=== PATIENT | male | born 1930 | race Asian ===

== ENCOUNTER 2020-11-24 11:03 | Inpatient (IN) | payer OTHER, MEDICAID, SELFPAY ==
[~2020-11-24] VITALS: Ht 162.6 cm; Wt 84.8 kg
--- NOTE | 2020-11-24 11:06 | NUR ---
Patient transferred to bed 6 via wheelchair by tech. RN evaluating the patient at bedside.
--- NOTE | 2020-11-24 11:15 | NUR ---
Dr. Miguel is evaluating the patient at bedside.
--- NOTE | 2020-11-24 11:15 | NUR ---
89 y/o M brought in by and daughter with c/c chest pain x 2 days. Patient presents A&Ox4, Greek speaking with daughter at bedside for translation. Per daughter, patient had worsening SOB x 2 days and chest pain that began last night. Pt states 7/10, squeezing/intermittent chest pain that worsens upon exertion. Pt states relief when sitting upright. Patient denies dizziness, N/V, fever, headache, abdominal pain. Daughter states patient took Advil with little relief. Upon assessment, SpO2 94% on room air. Respirations even/unlabored. Lung sounds CTA. site monitor in place. EMT at bedside for EKG. Bed locked in lowest position, side rails x1, call light in reach. PMH: HTN, HLD, DM, RIGHT EYE BLINDNESS, LEFT EYE PARTIAL BLINDNESS, 2 CVA [id number] AND [id number] Meds: See med reconciliation NKA
[2020-11-24 11:16] VITALS: BP 153/87
[2020-11-24] MEDS ORDERED: FUROSEMIDE 40 MG/4 ML VIAL IVP ONE (11:25)
[2020-11-24] MEDS ORDERED: NITROGLYCERIN 0.4 MG TAB SL ONE (11:25)
[2020-11-24] MEDS ORDERED: ASPIRIN 325 MG TAB PO ONE (11:25)
--- NOTE | 2020-11-24 11:25 | NUR ---
Rosa swab & blood samples collected, handed to Sanjana at ER bedside.
--- NOTE | 2020-11-24 11:31 | NUR ---
SAMUELD REQUESTED TO DELAY SECOND EKG FOR 20 MINS.
[2020-11-24 11:39] LABS: BASOPHILS # (AUTO) 0.1 K/uL (0.00-0.22); EOSINOPHILS # (AUTO) 0.3 K/uL (0-0.4); HEMATOCRIT 33.2 % (36-52); HEMOGLOBIN 11.1 g/dL (12.0-18.0); LYMPHOCYTES # (AUTO) 1.5 K/uL (2.0-11.5); LYMPHOCYTES % (AUTO) 22.4 % (20.5-51.1); MEAN CORPUSCULAR HEMOGLOBIN 30 pg (27-31); MEAN CORPUSCULAR HGB CONC 34 g/dL (33-37); MEAN CORPUSCULAR VOLUME 88.8 fL (80-94); MONOCYTES # (AUTO) 0.6 K/uL (0.8-1.0); MONOCYTES % (AUTO) 9.6 % (1.7-9.3); NEUTROPHILS # (AUTO) 4.2 K/uL (1.8-7.7); PLATELET COUNT (AUTO) 270 K/uL (140-450); RED BLOOD CELL COUNT(AUTO) 3.74 MIL/uL (4.20-6.10); RED CELL DISTRIBUTION WIDTH 15.3 % (11.6-13.7); WHITE BLOOD COUNT (AUTO) 6.6 K/uL (4.8-10.8)
[2020-11-24] MEDS ORDERED: AMLO2.5T PO (11:42)
[2020-11-24] MEDS ORDERED: SITA100T8 PO (11:42)
[2020-11-24] MEDS ORDERED: BRIM5SOL2 OP (11:42)
[2020-11-24] MEDS ORDERED: HYDR-3298 PO (11:42)
[2020-11-24] MEDS ORDERED: DONE10TA10 PO (11:42)
[2020-11-24] MEDS ORDERED: PIOG15TA84 PO (11:42)
[2020-11-24] MEDS ORDERED: VITA1TAB44 PO (11:42)
[2020-11-24] MEDS ORDERED: METF500T PO (11:42)
[2020-11-24] MEDS ORDERED: OLAN2.5T1 PO (11:42)
[2020-11-24] MEDS ORDERED: CLOP75TA55 PO (11:42)
[2020-11-24] MEDS ORDERED: INSU300S SC (11:42)
[2020-11-24] MEDS ORDERED: TRAV5SOL OP (11:42)
[2020-11-24] MEDS ORDERED: ATOR10TA PO (11:42)
[2020-11-24] MEDS ORDERED: TAMS0.4C96 PO (11:49)
[2020-11-24] MEDS ORDERED: CHOL200072 PO (11:49)
[2020-11-24] MEDS ORDERED: ICOS1SGL PO (11:49)
[2020-11-24] MEDS ORDERED: METO50TE2 PO (11:49)
--- NOTE | 2020-11-24 11:50 | NUR ---
EMT at bedside for repeat EKG.
--- NOTE | 2020-11-24 11:52 | NUR ---
Note undone in EDM - 11/24/20 at 1156 by MEDHL 89 y/o M brought in by and daughter with c/c chest pain x 2 days. Patient presents A&Ox4, Lithuanian speaking with daughter at bedside for translation. Per daughter, patient had worsening SOB x 2 days and chest pain that began last night. Pt states 7/10, squeezing/intermittent chest pain that worsens upon exertion. Pt states relief when sitting upright. Patient denies dizziness, N/V, fever, headache, abdominal pain. Daughter states patient took Advil with little relief. Upon assessment, SpO2 94% on room air. Respirations even/unlabored. Lung sounds CTA. ekg monitor in place. EMT at bedside for EKG. Bed locked in lowest position, side rails x1, call light in reach. PMH: HTN, HLD, DM, RIGHT EYE BLINDNESS, LEFT EYE PARTIAL BLINDNESS, 2 CVA [id number] AND [id number] Meds: See med reconciliation NKA
[2020-11-24 11:54] LABS: ALBUMIN 3.3 g/dL (3.4-5.0); ANION GAP 14.5 (8-16); ASPARTATE AMINOTRANSFERASE 24 U/L (15-37); CARBON DIOXIDE 24.5 mmol/L (21-32); CHLORIDE 102 mmol/L (98-107); CREATININE 1.8 mg/dL (0.6-1.3); GLUCOSE 291 mg/dL (74-106); SODIUM SERUM 137 mmol/L (136-145); TOTAL BILIRUBIN 0.4 mg/dL (0.0-1.0); UREA NITROGEN, BLOOD 23 mg/dL (7-18)
--- NOTE | 2020-11-24 11:54 | NUR ---
technology manager at bedside.
--- NOTE | 2020-11-24 11:56 | NUR ---
Teresa (Daughter/sewing demonstrator): [phone]
[2020-11-24] MEDS ORDERED: cefTRIAXone 1,000 MG VIAL ONE (12:38)
[2020-11-24 12:42] LABS: PROTHROMBIN TIME 9.8 secs (10.8-13.4)
--- NOTE | 2020-11-24 12:45 | NUR ---
Novel swab collected, walked to lab and handed to Sanjana
--- NOTE | 2020-11-24 13:11 | NUR ---
Report given to CORETTA Reyes via telephone. Advised patient will be ready to go in 10 minutes.
[2020-11-24 13:40] VITALS: BP 153/84
--- NOTE | 2020-11-24 13:40 | NUR ---
Patient will be admitted to care of Dr. Eng. Admited to Telemetry. Will go to [id number]. Belongings list completed. Report to CORETTA Reyes.
--- NOTE | 2020-11-24 13:40 | NUR ---
RECEIVED PT FROM ER NURSE. PT HAS R WRIST 20G. SKIN INTACT. PT ON 2L OXYGEN, NO SIGNS OF DISTRESS NOTED. INTRODUCE PT TO THE ROOM. DEMONSTRATED USE OF PHONE AND CALL LIGHT. SAFETY MEASURES IN PLACE, WILL CONTINUE TO MONITOR.
[2020-11-24] MEDS ORDERED: ONDANSETRON 4 MG/2 ML VIAL IM/IVP PRN (13:55)
[2020-11-24] MEDS ORDERED: HYDROcodone/APAP 7.5/325 MG 1 TAB PO PRN (13:55)
[2020-11-24] MEDS ORDERED: ACETAMINOPHEN 325 MG TAB PO PRN (13:55)
[2020-11-24] MEDS ORDERED: DOCUSATE SODIUM 100 MG GELCAP PO PRN (13:55)
[2020-11-24] MEDS ORDERED: guaiFENesin DM 200/20 MG-10 ML 10 ML UDC PO PRN (13:55)
[2020-11-24] MEDS ORDERED: ZOLPIDEM 5 MG TAB PO PRN (13:55)
[2020-11-24] MEDS ORDERED: POTASSIUM CHLORIDE 40 MEQ, LIDOCAINE MPF 1% 25 MG in NACL 0.9% 250 ML IV PRN (13:55)
[2020-11-24] MEDS ORDERED: ALBUTEROL SULFATE/IPRATROPIU 3 ML SOL IH PRN (14:00)
[2020-11-24] MEDS ORDERED: DEXTROSE 50% 50 ML SYR IVP PRN (14:00)
[2020-11-24 14:07] LABS: APPEARANCE,URINE CLEAR (CLEAR); BILIRUBIN,URINE NEGATIVE (NEGATIVE); BLOOD, URINE TRACE-I (NEGATIVE); COLOR,URINE YELLOW (YELLOW); LEUKOCYTE ESTERASE ,URINE NEGATIVE (NEGATIVE); NITRITE, URINE NEGATIVE (NEGATIVE); PH,URINE 5.5 (5.0-9.0); UGLUCOSE 3+ (NEGATIVE)
[2020-11-24 14:21] LABS: BARBITURATE, URINE NEGATIVE ng/ml (NEG <=200); BENZODIAZEPINE, URINE NEGATIVE ng/mL (NEG <=200); CANNABINOID, URINE NEGATIVE ng/mL (NEG <=50); COCAINE, URINE NEGATIVE ng/mL (NEG <=300); OPIATE, URINE NEGATIVE ng/mL (NEG <=2000); PHENCYCLIDINE SCREEN,URINE NEGATIVE ng/mL (NEG <=25)
[2020-11-24 14:23] LABS: CHOL/HDL RATIO 3.4 (1-4.5); FREE T4 (FREE THYROXINE) 1.29 ng/dL (0.76-1.46); MAGNESIUM 1.2 mg/dL (1.8-2.4); PHOSPHORUS 3.1 mg/dL (2.5-4.9); THYROID STIMULATING HORMONE 3.64 uIU/mL (0.34-3.74)
--- NOTE | 2020-11-24 14:57 | NUR ---
REPORT TO DR GARDINER, VTE RISK TOTAL SCORE:4. RECEIVED TORB FOR HEPARIN 5000 UNITS BID SUBCUTANEOUS. WILL INPUT ORDER.
--- NOTE | 2020-11-24 15:10 | NUR ---
NOTIFIED DR GARDINER PT MAGNESIUM 1.2. RECEIVED TORB FOR 2MG MAG RIDER IV. AND CHECK MAGNESIUM TOMORROW. WILL INPUT ORDER.
[2020-11-24] MEDS ORDERED: MAG SULF 2000 MG/WATER PREMIX 50 ML IV SCH (15:30)
[2020-11-24 16:00] VITALS: BP 129/72
--- NOTE | 2020-11-24 16:00 | NUR ---
ADMINISTERED SCHEDULED MEDICATION, MEDICATION EDUCATION PROVIDED. PT TOLERATED WELL. PT IS STABLE, WILL CONTINUE TO MONITOR.
[2020-11-24] MEDS: INSULIN LISPRO SLIDING SCALE 100 UNITS/ML VIAL SUBQ PRN ×2 (16:49→20:30)
[2020-11-24] MEDS: BLOOD GLUCOSE MONITORING 1 DEV DEV FS SCH ×2 (16:51→20:30)
[2020-11-24] MEDS: metFORMIN 500 MG TAB PO SCH (16:52)
--- NOTE | 2020-11-24 16:55 | NUR ---
ADMINISTERED SCHEDULED MEDICATION, PT TOLERATED WELL. PT IS STABLE. PT ON ROOM AIR, WILL CONTINUE TO MONITOR.
[2020-11-24] MEDS: NACL 0.9% 1,000 ML IV SCH (18:27)
--- NOTE | 2020-11-24 18:30 | NUR ---
PT WAS SEEN FOR DYSPHAGIA. PT WAS ABLE TO SAFELY SWALLOW MS DIET WITH CHOPPED MEAT AND VEG. MILD DIFFICULTY WITH MASTICATION SKILLS FOR REGULAR DIET. RECOMMENDATION MS DIET WITH FINELY CHOPPED VEG AND MEAT WITH THIN LIQUID
--- NOTE | 2020-11-24 18:34 | NUR ---
ADMINISTERED SCHEDULED FLUIDS. PT EDUCATION PROVIDED. PT IS EATING DINNER. PT IS STABLE, WILL CONTINUE TO MONITOR.
--- NOTE | 2020-11-24 19:25 | NUR ---
ENDORSE PT TO NIGHT NURSE FOR CONTINUITY OF CARE
--- NOTE | 2020-11-24 19:26 | NUR ---
RECEIVED REPORT FROM DAY SHIFT NURSE. PT IN BED RESTING. PT AAOX2, KNOWN HISTORY OF DEMENTIA, OCCITAN SPEAKING. RESPIRATIONS EVEN AND UNLABORED TO ROOM AIR, PT NOT IN DISTRESS. ABDOMEN IS SOFT AND NON-TENDER, ACTIVE BOWEL SOUNDS NOTED. SKIN IS WARM AND DRY. PT WITH IV ACCESS ON RIGHT WRIST G20, PATENT AND INTACT, IVF INFUSING WELL. NO S/SX PAIN OR DISCOMFORT AT THIS TIME. NO REQUESTS MADE. SAFETY MEASURES IN PLACE. CALL LIGHT WITHIN REACH. WILL CONTINUE TO MONITOR.
[2020-11-24] MEDS: ALBUTEROL SULFATE/IPRATROPIU 3 ML SOL IH SCH (19:35)
[2020-11-24 20:00] VITALS: BP 158/64
[2020-11-24] MEDS: OLANZapine 2.5 MG TAB PO SCH (20:23)
--- NOTE | 2020-11-24 20:30 | NUR ---
PT IN BED. SCHEDULED MEDS GIVEN. PT NOT IN DISTRESS. TOLERATING ROOM AIR WELL. NO S/SX OF PAIN OR DISCOMFORT. CALL LIGHT WITHIN REACH. WILL CONTINUE TO MONITOR.
[2020-11-24] MEDS ORDERED: NON-FORMULARY ITEM (Brimonidine Tartrate/Timolol (Combigan 0.2%-0.5% Eye Drops) 5 ML) OP SCH (21:00)
--- NOTE | 2020-11-24 22:08 | NUR ---
ROUNDS MADE. PT IN BED WATCHING TV. NO S/SX OF PAIN OR DISCOMFORT NOTED. PT UNABLE TO PRODUCE SPUTUM SAMPLE FOR CULTURE. CALL LIGHT WITHIN REACH. WILL CONTINUE TO MONITOR.
[2020-11-25] VITALS: BP 150/76
--- NOTE | 2020-11-25 00:20 | NUR ---
VS STABLE. PT NOT IN DISTRESS. PERINEAL CARE DONE WITH SUPERVISOR INSTRUMENT REPAIR. PT TOLERATED CARE PROVIDED. NO S/SX OF PAIN OR DISCOMFORT NOTED. PT KEPT COMFORTABLE. CALL LIGHT WITHIN REACH. WILL CONTINUE TO MONITOR.
--- NOTE | 2020-11-25 02:03 | NUR ---
ROUNDS MADE, PT ASLEEP. VISIBLE CHEST RISE AND FALL NOTED. NO S/SX OF PAIN OR DISCOMFORT AT THIS TIME. PT KEPT SAFE AND COMFORTABLE. WILL CONTINUE TO MONITOR.
[2020-11-25 04:00] VITALS: BP 161/76
--- NOTE | 2020-11-25 04:00 | NUR ---
PT PULLED OUT IV ACCIDENTALLY, CANNULA INTACT. NEW IV ACCESS INSERTED ON LEFT AC G20, PATENT AND INTACT. IVF INFUSING WELL. VS TAKEN, STABLE. PT DENIES ANY PAIN OR DISCOMFORT AT THIS TIME, NO REQUESTS MADE. CALL LIGHT WITHIN REACH. WILL CONTINUE TO MONITOR.
[2020-11-25 04:58] LABS: BASOPHILS # (AUTO) 0.1 K/uL (0.00-0.22); BASOPHILS % (AUTO) 0.8 % (0.0-2.0); EOSINOPHILS # (AUTO) 0.2 K/uL (0-0.4); EOSINOPHILS % (AUTO) 3.9 % (0.0-4.0); HEMATOCRIT 32.5 % (36-52); LYMPHOCYTES # (AUTO) 1.3 K/uL (2.0-11.5); LYMPHOCYTES % (AUTO) 20.1 % (20.5-51.1); MEAN CORPUSCULAR HEMOGLOBIN 30 pg (27-31); MEAN CORPUSCULAR HGB CONC 34 g/dL (33-37); MEAN CORPUSCULAR VOLUME 88.6 fL (80-94); MONOCYTES # (AUTO) 0.5 K/uL (0.8-1.0); MONOCYTES % (AUTO) 8.5 % (1.7-9.3); NEUTROPHILS # (AUTO) 4.2 K/uL (1.8-7.7); NEUTROPHILS % (AUTO) 66.7 % (42.2-75.2); PLATELET COUNT (AUTO) 255 K/uL (140-450); RED BLOOD CELL COUNT(AUTO) 3.66 MIL/uL (4.20-6.10); WHITE BLOOD COUNT (AUTO) 6.4 K/uL (4.8-10.8)
[2020-11-25 05:05] LABS: ANION GAP 11.4 (8-16); CHLORIDE 102 mmol/L (98-107); CREATININE 1.5 mg/dL (0.6-1.3); GLUCOSE 193 mg/dL (74-106); POTASSIUM 3.4 mmol/L (3.5-5.1); SODIUM SERUM 139 mmol/L (136-145); UREA NITROGEN, BLOOD 21 mg/dL (7-18)
[2020-11-25] MEDS: NACL 0.9% 1,000 ML IV SCH ×2 (06:31→20:56)
[2020-11-25] MEDS: PANTOPRAZOLE 40 MG TABEC PO SCH (06:32)
--- NOTE | 2020-11-25 06:35 | NUR ---
ROUNDS MADE, PT FOUND SITTING ON THE FLOOR ASKING FOR HELP. PT NOTED WITH A SMALL BLEEDING CUT FROM RIGHT EYE BROW. PT RESPONSIVE TO QUESTIONS AND PUPILS ARE REACTIVE. WITH THE HELP OF CENTRIFUGAL DRIER OPERATOR AND RN, PATIENT WAS ABLE TO STAND AND MOVE TO HIS BED. WOUND WAS CLEANSED AND DRESSED, ICE ALSO APPLIED TO AFFECTED AREA. PT WAS MOVED TO A CLOSER ROOM 110A. PT KEPT COMFORTABLE, SAFETY MEASURES IN PLACE, SIDE RAILS RAISED, CALL LIGHT WITHIN REACH. MD MADE AWARE AND RECEIVED ORDER FOR CT W/O CONTRAST.
[2020-11-25] MEDS: BLOOD GLUCOSE MONITORING 1 DEV DEV FS SCH ×4 (06:43→20:50)
[2020-11-25] MEDS: INSULIN LISPRO SLIDING SCALE 100 UNITS/ML VIAL SUBQ PRN ×4 (06:44→21:08)
[2020-11-25] MEDS: ALBUTEROL SULFATE/IPRATROPIU 3 ML SOL IH SCH ×3 (07:00→19:35)
--- NOTE | 2020-11-25 07:20 | NUR ---
ATTEMPTED TO SEE PATIENT FOR PHYSICAL THERAPY EVALUATION HOWEVER PATIENT HAD MORNING FALL PRIOR TO THERAPY VISIT. BP: 197/74 AND WAS GOING FOR A CT HEAD SCAN. WILL FOLLOW UP IF APPROPRIATE.
--- NOTE | 2020-11-25 07:32 | NUR ---
ENDORSED TO DAY SHIFT NURSE FOR CONTINUITY OF CARE
--- NOTE | 2020-11-25 07:35 | NUR ---
RECEIVED PATIENT FROM NIGHT NURSE. PATIENT IN BED AWAKE, ALERT, EYE OPENING SPONTANEOUS. RESPONDING TO NAME. RESP EVEN AND UNLABORED ON ROOM AIR. ICE PACK NOTED TO RIGHT EYE BROW WITH RIGHT SWELLING NOTED TO RIGHT EYE. PATIENT REPORTED TO HAVE BEEN FOUND ON THE FLOOR BY NIGHT NURSE. PATIENT UNABLE TO DISCUSS HOW IT HAPPENED. RAC 20G NOTED INFUSING WELL. PLAN OF CARE DISCUSSED, PATIENT NODDED UNDERSTANDING. HOB ELEVATED. CALL LIGHT WITHIN REACH. WILL CONTINUE TO MONITOR.
[2020-11-25] MEDS ORDERED: hydrALAZINE 20 MG/ML VIAL IVP PRN (07:45)
[2020-11-25 08:00] VITALS: BP 171/87
[2020-11-25 08:08] LABS: T4 (THYROXINE) 7.4 ug/dL (4.5-12.0)
--- NOTE | 2020-11-25 08:09 | NUR ---
PATIENT WENT FOR CT HEAD. PATIENT LEFT IN STABLE CONDITION.
--- NOTE | 2020-11-25 08:24 | NUR ---
PATIENT RETURNED FROM HEAD CT. SMALL CLOSED LACERATION NOTED TO RIGHT EYEBROW, NO ACTIVE BLEEDING NOTED AT THIS TIME. SWELLING NOTED TO RIGHT EYE. PATIENT AWAKE AND ALERT. EYE OPENING SPONTANEOUS. DENIED OF PAIN AT THIS TIME. WILL CONTINUE TO MONITOR.
--- NOTE | 2020-11-25 08:33 | NUR ---
FNS REFERRAL RECEIVED FOR "NOT APPLICABLE" WITH ONLY 1 OUT OF 2 TRIGGERS APPLIED. PATIENT HAS BEEN SCREENED AND CATEGORIZED MODERATE NUTRITION RISK. PATIENT WILL BE SEEN WITHIN 3-5 DAYS OF ADMISSION. 11/27/20 11/29/[address]
[2020-11-25] MEDS ORDERED: POTASSIUM CHLORIDE 10 MEQ TABER PO SCH (08:37)
--- NOTE | 2020-11-25 08:50 | NUR ---
RECEIVED CALL FROM DR FRASER RADIOLOGIST R/T PATIENT HEAD CT RESULT OF SUSPICIOUS RIGHT SUBDURAL HEMATOMA S/P FALL. DR FRASER RECOMMENDED REPEAT HEAD CT W/O CONTRAST IN [address] GARDINER MADE AWARE AND RECEIVED ORDER TO REPEAT CT. ORDER CARRIED OUT.
[2020-11-25] MEDS: ATORVASTATIN 20 MG TAB PO SCH (08:58)
[2020-11-25] MEDS: LOSARTAN 50 MG TAB PO SCH (08:58)
[2020-11-25] MEDS: metFORMIN 500 MG TAB PO SCH ×3 (08:58→16:35)
[2020-11-25] MEDS: TAMSULOSIN 0.4 MG CAP PO SCH (08:58)
[2020-11-25] MEDS: METOPROLOL SUCCINATE 50 MG TABER PO SCH (08:59)
[2020-11-25] MEDS: hydroCHLOROthiazide 25 MG TAB PO SCH (08:59)
[2020-11-25] MEDS: CLOPIDOGREL 75 MG TAB PO SCH (08:59)
[2020-11-25] MEDS: BRIMONIDINE TARTRATE 0.2% OP 5 ML BTL OP SCH ×2 (09:00→20:56)
[2020-11-25] MEDS: TIMOLOL OP 0.5% 5 ML BTL OP SCH ×2 (09:00→20:55)
[2020-11-25] MEDS: amLODIPine 5 MG TAB PO SCH (09:00)
[2020-11-25] MEDS ORDERED: NON-FORMULARY ITEM (Losartan/Hydrochlorothiazide (Losartan-Hctz 100-12.5 mg Tab) 1 TAB) PO SCH (09:00)
--- NOTE | 2020-11-25 09:35 | NUR ---
PATIENT IN BED AWAKE AND ALERT. MORNING ROUTINE MEDICATIONS GIVEN. PATIENT TOLERATED WELL. RESP EVEN AND UNLABORED ON ROOM AIR. PATIENT HAS HX OF MILD DEMENTIA, ABLE TO FOLLOW SIMPLE COMMANDS AND FORGETFUL. VERY LIMITED UNDERSTANDING OF URUGUAYAN. REINFORCEMENT NEEDED AND FREQUENT MONITORING. CALL LIGHT WITHIN REACH. WILL CONTINUE TO MONITOR.
[2020-11-25] MEDS ORDERED: MAG SULF 2000 MG/WATER PREMIX 50 ML IV SCH (10:00)
--- NOTE | 2020-11-25 10:59 | NUR ---
PATIENT SEEN ATTEMPTING TO GET OUT OF BED. PATIENT STATED "HOME", JOSEFINA DAUGHTER CALLED AND SPOKE TO PATIENT. OR NURSE MELISSA CAME TO ASSIST WITH SPEAKING TO PATIENT. PATIENT WAS ENCOURAGED TO STAY IN BED. NO DISCHARGE ORDER FOR HIM TO GO HOME JUST YET. PATIENT VERBALIZED UNDERSTANDING. WILL CONTINUE TO MONITOR
--- NOTE | 2020-11-25 11:53 | NUR ---
SOCIAL WORK NOTE: Patient's Orientation Unable To Assess Information Provided By JOSEFINA NORIEGA - DAUGHTER Comments SW WAS UNABLE TO MEET PATIENT AT BEDSIDE. SW COMPLETED ASSESSMENT WITH PATIENT'S DAUGHTER. Dough Scaler And Mixer, Realtionship and Phone Number JOSEFINA NORIEGA DAUGHTER [phone] Healthcare Power of Preparer Samples And Repairs No Does Patient Have a POLST No Identifying Problems No Social Work Triggers Is A Social Work Consult Needed No Mandate Report Filed No Explanation Of Identifying Problems PATIENT IS AN 89-YEAR-OLD MALE ADMITTED FOR CHEST PAIN AND PNEUMONIA. PATIENT HASP MHX OF CVA, HYPERTENSION, AND DEMENTIA. Admitted From Home Pre-Admission Level Of Functioning Status Assist With ADL Level Of Functioning Comment PER DAUGHTER, PATIENT REQUIRES ASSISTANCE PREPARING MEALS, TRANSFERRING, AND TRANSPORTATION. DAUGHTER STATED THAT PATIENT HAS A CANE AND IS AMBULATORY. Prior Resources/Services Used In Last 12 Months No Prior Resources Used Prior DME [facility] Dialysis Comments N/A Living Situation Apartment Lives With Spouse Other Living Situation/Comment PER DAUGHTER, PATIENT LIVES WITH ELDERLY SPOUSE. DAUGHTER STATED THAT PATIENT NOW HAS A CAREGIVER THAT ASSISTS PATIENT WITH ADLS. CAREGIVER INFORMATION IS UNKNOWN TO DAUGHTER DUE TO CAREGIVER BEGINNING TO ASSIST PATIENT LAST WEEK. Patient Had Caregiver Yes Home Support No Caregiver Issues Financial Issues No Known Financial Issue Referral To The Financial Counselor Needed No Factors/Needs SNF/NH Placement Explanation And Or Other Factors Affecting/Possible DC Needs DAUGHTER STATED THAT SHE HAS BEEN IN CONTA[place] [facility]. DAUGHTER STATED THAT HER PLANS WERE TO HAVE PATIENT BE DISCHARGED TO [facility]. Pt/Rep Participated In Discharge Plan Yes Patient/Family Agress With Discharge Plan Yes Discharge Plan Comments TENTATIVE DISCHARGE PLAN IS FOR PATIENT TO BE DISCHARGED TO [facility]. DC Plan Status Initiated
[2020-11-25 12:00] VITALS: BP 112/62
--- NOTE | 2020-11-25 12:20 | NUR ---
BLOOD SUGAR 256. INSULIN PROVIDED PER SLIDING SCALE. PATIENT IN BED AWAKE AND ALERT. ABLE TO FOLLOW COMMANDS AND STAYS IN BED. NO NOTED DISTRESS AT THIS TIME. BED ALARM SET. CALL LIGHT WITHIN REACH. WILL CONTINUE TO MONITOR.
--- NOTE | 2020-11-25 13:09 | NUR ---
PATIENT WENT TO RADIOLOGY FOR REPEAT HEAD CT. PATIENT LEFT IN STABLE CONDITION.
--- NOTE | 2020-11-25 13:25 | NUR ---
PATIENT RETURNED FROM CT IN STABLE CONDITION. PATIENT COMPLIANT WITH STAFF AND STAYING IN BED. NO NOTED DISTRESS AT THIS TIME. ABLE TO MAKE NEEDS KNOWN. WILL CONTINUE TO MONITOR
[2020-11-25] MEDS ORDERED: Z-GUARD PASTE TP ONE (13:47)
--- NOTE | 2020-11-25 14:08 | NUR ---
DC PLANNIN YRS OLD MALE PATIENT WAS ADMITTED FROM HOME WITH A DX OF CHEST PAIN AND PNEUMONIA. PT HAS A HX OF CVA, CAD 2 STENT PLACEMENT HTT, HLD AND MILD DEMENTIA. CXR SHOWED PNEUMONIA .RAPID COVID TEST NEGATIVE. CT HEAD NEGATIVE. STARTED IVF, IV ABX ROCEPHIN AND CONTINUE HOME MEDS. CONSULTED WITH CARDIO AND PULMO. DC PLAN [place] [facility] CM TO FOLLOW Addendum: 11/26/20 at 1130 by Debbie Valencia CM DC COMPLIANCE MGR: INTERNET SALES REPRESENTATIVE SPOKE TO PATIENTS FAMILY ABOUT DISCHARGE PLANS. THEY STATED THAT THEY WOULD LIKE FAMILY TO [place] [facility] FAXED CLINICALS WILL FOLLOW UP. Addendum: 11/26/20 at 1338 by Debbie Valencia CM DC COMPLIANCE MGR: LEV PAULA [place] [facility] [place] ACCE[place] THIS PATIENT. ROOM 49-A UNDER DR[address] ZULEYKA Addendum: 11/27/20 at 1220 by Debbie Valencia CM DC COMPLIANCE MGR: SPOKE TO PATIENTS JOSEFINA RUIZ [phone] TO NOTIFY HER THAT PATIENT HAS BEEN ACCEPTED [place] [facility] AND PLAN OF DC IS TOMORROW. DISCUSSED WITH HER RIGHTS OF MEDI-CARE. Addendum: 11/28/20 at 1307 by Fanta Ordaz RN DC PLANNING: PT IS ACCEPTED AT [facility] [place] GO TO ROOM 53A UNDER THE CARE ON DR ZULEYKA PULIDO # TO GIVE REPORT [phone]. ARRANGE TRANSPORT WITH [facility] NET [facility] 9 THROUGH 12 TEACHER TIME 3:30 NOTIFY DILCIA HITCHCOCK CM TO FOLLOW
[2020-11-25 16:00] VITALS: BP 127/89
--- NOTE | 2020-11-25 16:54 | NUR ---
BLOOD SUGAR 189, INSULIN PROVIDED PER SLIDING SCALE. NO NOTED DISTRESS. PATIENT AWAKE AND ALERT. PERIODS OF CONFUSION NOTED BUT ABLE TO REDIRECT. WILL CONTINUE TO MONITOR.
--- NOTE | 2020-11-25 18:09 | NUR ---
PATIENT IN BED AWAKE AND ALERT. REDIRECTING PROVIDED. PATIENT HAS MOMENTS OF CONFUSION. NO NOTED DISTRESS AT THIS TIME. CALL LIGHT WITHIN REACH. WILL CONTINUE TO MONITOR.
--- NOTE | 2020-11-25 19:35 | NUR ---
PATIENT WAS FOUND GETTING OUT OF BED, AND CONFUSED. PATIENT KNOCKED OVER HIS DINNER TRAY. PATIENT WAS SITUATED BACK INTO BED AND NEW GOWN WAS PUT ON. PATIENT ENCOURAGED TO STAY IN BED AND COMPLIED. ENDORSED PATIENT TO NIGHT NURSE. PATIENT IN STABLE CONDITION.
--- NOTE | 2020-11-25 19:35 | NUR ---
RECEIVED BEDSIDE REPORT FROM DAY SHIFT NURSE, SUJEY HITCHCOCK, FOR CONTINUITY OF CARE. PT IS AWAKE AND LAYING IN SEMI FOWLERS POSITION. A&OX2, VIETNAMESE SPEAKING. ON RA WITH BREATHING UNLABORED. CHEST RISE AND FALL IS SYMMETRICAL. SR ON TELE MONITORING. PT IS INCONTINENT WITH DRY CHUCKS IN PLACE. PT WAS JUST CHANGED BY DAY SHIFT NURSE, SUJEY HITCHCOCK. LACERATION TO THE RIGHT EYEBROW, S/P FALL. CT HEAD NEGATIVE. INCONTINENT DERMATITIS WITH Z GUARD IN PLACE. SKIN IS WARM AND DRY. IV IS IN THE RIGHT AC 20 GAUGE RUNNING NS AT 60 ML/ HR PER ORDER. POTASSIUM AND MAGNESIUM REPLACED TODAY PER DAY SHIFT NURSE. RAPID COVID NEGATIVE, PCR PENDING. PLAN OF CARE DISCUSSED. PT IS STABLE AT THIS TIME. RT AT THE BEDSIDE.
--- NOTE | 2020-11-25 19:45 | NUR ---
RECEIVED REPORT FROM AM SHIFT. PT SEEN AND ASSESSED. FOUND PT ON ROOM AIR WITH SPO2 OF 100%. PT IS IN NO APPARENT RESPIRATORY DISTRESS AT THIS TIME. AUSCULTATION REVEALS CLEAR/DIMINISHED BREATH SOUNDS ON UPPER LOBES AND DIMINISHED ON THE BASES. SCHEDULE HHN TX GIVEN ORDERED AND PT TOLERATED TX WELL WITH NO ADVERSE REACTION. WILL CONTINUE TO MONITOR PT.
[2020-11-25 20:00] VITALS: BP 159/84
[2020-11-25] MEDS: OLANZapine 2.5 MG TAB PO SCH (20:54)
--- NOTE | 2020-11-25 21:30 | NUR ---
PT WAS CHANGED AND REPOSITIONED. PT TURNS WITH PROMPTING. NO RESPIRATORY DISTRESS OR PAIN NOTED. FLACC 0. IV IS IN PLACE AND INFUSING. SR ON TELE MONITORING. LINENS WERE ALSO CHANGED. PT WAS GIVEN WATER REQUESTED. PT IS STABLE.
--- NOTE | 2020-11-25 23:30 | NUR ---
ROUNDED ON PT. HE IS SLEEPING IN SEMI FOWLERS POSITION. NO PAIN OR DISTRESS NOTED. BED IS IN THE LOWEST POSITION AND BED ALARM IS ON. IV FLUIDS ARE INFUSING. WILL CONTINUE TO MONITOR.
[2020-11-26] VITALS: BP 116/77
--- NOTE | 2020-11-26 01:30 | NUR ---
PT IS AWAKE AND MOVING IN BED. PT IS CALLING OUT. PT IS STABLE AT THIS TIME. PROVIDED WATER AND BLANKET. PT'S DIAPER IS DRY AND IN PLACE. WILL CONTINUE TO MONITOR.
--- NOTE | 2020-11-26 03:30 | NUR ---
PT VOIDED AND WAS CHANGED. PT WAS GIVEN APPLESAUCE AND JUICE REQUESTED. PT TOLERATED THE FEEDING WELL. REPOSITIONED IN BED. PT NEEDED TO BE REDIRECTED TO SLEEP. WILL MONITOR.
[2020-11-26 04:00] VITALS: BP 147/81
--- NOTE | 2020-11-26 05:21 | NUR ---
ROUNDED ON PT. HE IS ASLEEP IN SEMI FOWLERS POSITION. BREATHING IS REGULAR AND UNLABORED. DIAPER IS DRY AND IN PLACE. IV FLUIDS ARE INFUSING AND PATENT. PT IS STABLE.
[2020-11-26] MEDS: BLOOD GLUCOSE MONITORING 1 DEV DEV FS SCH ×4 (06:26→21:14)
[2020-11-26] MEDS: INSULIN LISPRO SLIDING SCALE 100 UNITS/ML VIAL SUBQ PRN ×3 (06:28→17:54)
[2020-11-26] MEDS: PANTOPRAZOLE 40 MG TABEC PO SCH (06:30)
[2020-11-26 06:40] LABS: BASOPHILS # (AUTO) 0.1 K/uL (0.00-0.22); BASOPHILS % (AUTO) 0.7 % (0.0-2.0); EOSINOPHILS # (AUTO) 0.3 K/uL (0-0.4); EOSINOPHILS % (AUTO) 3.4 % (0.0-4.0); HEMATOCRIT 32.7 % (36-52); HEMOGLOBIN 10.8 g/dL (12.0-18.0); LYMPHOCYTES # (AUTO) 1.7 K/uL (2.0-11.5); MEAN CORPUSCULAR HEMOGLOBIN 30 pg (27-31); MEAN CORPUSCULAR HGB CONC 33 g/dL (33-37); MEAN CORPUSCULAR VOLUME 89.2 fL (80-94); MONOCYTES # (AUTO) 0.6 K/uL (0.8-1.0); MONOCYTES % (AUTO) 8.2 % (1.7-9.3); NEUTROPHILS # (AUTO) 4.9 K/uL (1.8-7.7); NEUTROPHILS % (AUTO) 64.7 % (42.2-75.2); PLATELET COUNT (AUTO) 252 K/uL (140-450); RED BLOOD CELL COUNT(AUTO) 3.67 MIL/uL (4.20-6.10); RED CELL DISTRIBUTION WIDTH 14.9 % (11.6-13.7); WHITE BLOOD COUNT (AUTO) 7.5 K/uL (4.8-10.8)
--- NOTE | 2020-11-26 06:45 | NUR ---
PT IS SLEEPING COMFORTABLY. CHEST RISE AND FALL IS SYMMETRICAL. IV FLUIDS ARE INFUSING. BED IS IN THE LOWEST POSITION AND BED ALARM IS ON. PT IS STABLE.
[2020-11-26] MEDS: ALBUTEROL SULFATE/IPRATROPIU 3 ML SOL IH SCH ×3 (07:00→19:18)
--- NOTE | 2020-11-26 07:15 | NUR ---
ENDORSED PT TO DAY SHIFT NURSE FOR CONTINUITY OF CARE. PT IS STABLE AT THIS TIME. PLAN OF CARE DISCUSSED.
--- NOTE | 2020-11-26 07:15 | NUR ---
REC'D REPORT FROM GRID TRIMMER NURSE ,PT SLEEPING, ON TELEMONITOR CURRENTLY SR. YI SPEAKING, CALL LIGHT WITHIN REACH, BED LOWEST POSITION. RA. NO SIGN OF DISTRESS.
--- NOTE | 2020-11-26 07:55 | NUR ---
PHYSICAL THERAPIST AT BEDSIDE, STATES PT TOO WEAK TO WALK, EXTREMELY CONFUSED, NEEDS TO BE REDIRECTED BACK TO BED. DOES NOT RECOMMEND FOR PT TO AMBULATE AT THIS TIME.
[2020-11-26 07:59] LABS: CARBON DIOXIDE 22.9 mmol/L (21-32); CHLORIDE 103 mmol/L (98-107); CREATININE 1.5 mg/dL (0.6-1.3); GLUCOSE 183 mg/dL (74-106); POTASSIUM 3.9 mmol/L (3.5-5.1); SODIUM SERUM 139 mmol/L (136-145); UREA NITROGEN, BLOOD 19 mg/dL (7-18)
[2020-11-26 08:00] VITALS: BP 159/73
--- NOTE | 2020-11-26 08:42 | NUR ---
PT TRANSFERED TO BED 123A, NOW WITH SITTER. PT STABLE, NO SIGN OF DISTRESS, IV R. AC 20G PATENT, INFUSING NS 60ML. PT TOLERATED TRANSFER WELL.
[2020-11-26] MEDS: CLOPIDOGREL 75 MG TAB PO SCH (09:32)
[2020-11-26] MEDS: hydroCHLOROthiazide 25 MG TAB PO SCH (09:32)
[2020-11-26] MEDS: LOSARTAN 50 MG TAB PO SCH (09:33)
[2020-11-26] MEDS: ATORVASTATIN 20 MG TAB PO SCH (09:33)
[2020-11-26] MEDS: TAMSULOSIN 0.4 MG CAP PO SCH (09:33)
[2020-11-26] MEDS: METOPROLOL SUCCINATE 50 MG TABER PO SCH (09:33)
[2020-11-26] MEDS: amLODIPine 5 MG TAB PO SCH (09:34)
[2020-11-26] MEDS: metFORMIN 500 MG TAB PO SCH ×3 (09:34→17:52)
[2020-11-26] MEDS: TIMOLOL OP 0.5% 5 ML BTL OP SCH ×2 (09:36→21:15)
[2020-11-26] MEDS: BRIMONIDINE TARTRATE 0.2% OP 5 ML BTL OP SCH ×2 (09:36→21:14)
--- NOTE | 2020-11-26 09:40 | NUR ---
ADMINISTERED MEDICATIONS PER MD ORDER, DISCUSSED MOA AND SIDE EFFECTS, PT SPEAKS LITHUANIAN, MINIMAL UNDERSTANDING, IV ANTIBIOTIC ADMINISTERED, IV PATENT, FLUSHED WELL. PT ABLE TO TAKE MEDICATIONS WITH SPOON. ASSISTED TO USE URINAL. PT CAN VOICE NEEDS WITH SIGNS. PT TOLERATED PROCEDURE WELL.
--- NOTE | 2020-11-26 11:59 | NUR ---
FINGER BLOOD GLUCOSE 181. PT TOLERATED PROCEDURE WELL. STATES HE IS HAPPY. NO SIGN OF DISTRESS
[2020-11-26 12:00] VITALS: BP 112/74
--- NOTE | 2020-11-26 13:03 | NUR ---
ADMINISTERED INSULIN PER SLIDING SCALE. PT TOLERATED PROCEDURE WELL. ASSISTED WITH URINAL, PT APPEARS TO STRAIN DURING URINATION.PT STABLE
--- NOTE | 2020-11-26 14:38 | NUR ---
PT ATTEMPTING TO GET OFF BED, TOOK OFF GOWN, REDIRECTED, ASSISTED WITH URINAL, PT NOW COMFORTABLE IN BED, STABLE, NO SIGN OF DISTRESS
[2020-11-26] MEDS: NACL 0.9% 1,000 ML IV SCH (15:55)
[2020-11-26 16:00] VITALS: BP 180/70
--- NOTE | 2020-11-26 18:21 | NUR ---
COLLECTED SPUTUM SPECIMEN FROM PT. DROPPED OFF TO LAB FOR PROCESSING
--- NOTE | 2020-11-26 18:39 | NUR ---
PT STABLE, DOES NOT WISH TO EAT DINNER. NO SIGN OF DISTRESS
--- NOTE | 2020-11-26 19:22 | NUR ---
RECEIVED REPORT FROM AM SHIFT. PT SEEN AND ASSESSED. FOUND PT ON ROOM AIR WITH SPO2 OF 97%. PT IS IN NO APPARENT RESPIRATORY DISTRESS AT THIS TIME. AUSCULTATION REVEALS CLEAR/DIMINISHED BREATH SOUNDS ON UPPER LOBES AND DIMINISHED ON THE BASES. SCHEDULE HHN TX GIVEN ORDERED AND PT TOLERATED TX WELL WITH NO ADVERSE REACTION. WILL CONTINUE TO MONITOR PT.
--- NOTE | 2020-11-26 19:25 | NUR ---
RECEIVED BEDSIDE REPORT FROM DAY SHIFT NURSE FOR CONTINUITY OF CARE. PT IS AWAKE AND LAYING IN SEMI FOWLERS POSITION. PT APPEARS TO BE CONFUSED. DAY SHIFT NURSE STATED THAT THE PT PULLED OUT HIS IV. NO IV ACCESS CURRENTLY, WILL PLACE IV SHORTLY. ON RA WITH BREATHING UNLABORED. SR ON TELE MONITORING. PT IS INCONTINENT WITH DRY DIAPER IN PLACE AND URINAL AT BEDSIDE WHEN REQUESTED. LACERATION TO THE RIGHT EYEBROW, S/P FALL. INCONTINENT DERMATITIS IN THE PERINEAL AND UPPER THIGH REGION. SKIN IS WARM AND DRY. IV IS IN THE RIGHT AC 20 GAUGE RUNNING NS AT 60 ML PER HOUR PER ORDER. PT IS STABLE. PLAN OF CARE DISCUSSED. STANDARD AND FALL PRECAUTIONS IN PLACE.
[2020-11-26 20:00] VITALS: BP 144/64
[2020-11-26] MEDS: OLANZapine 2.5 MG TAB PO SCH (21:15)
--- NOTE | 2020-11-26 21:42 | NUR ---
NEW IV INSERTED ON PT. IV WAS PLACED ON THE LEFT HAND 24 GAUGE. IV IS PATENT AND FLUSHING. PT DENIES PAIN AT THE INSERTION SITE. IV WAS WRAPPED WITH GUAZE DRESSING TO PREVENT PT FROM PULLING OUT IV AGAIN. IV FLUIDS ARE NOW INFUSING. WILL CONTINUE TO MONITOR PT.
--- NOTE | 2020-11-26 21:52 | NUR ---
PT VERY RESTLESS AND UNABLE TO SLEEP. DECREASED STIMULI BUT WAS NOT ABLE TO SLEEP STILL. PT WAS GIVEN AMBIEN FOR SLEEP. WILL MONITOR PT.
[2020-11-27] VITALS: BP 159/68
--- NOTE | 2020-11-27 | NUR ---
ROUNDED ON PT. HE IS SLEEPING IN SEMI FOWLERS POSITION. WAKES UP VERY EASILY BY NOISE. WHEN AWOKEN PT STARTS PULLING AT LINES BUT IS REDIRECTED QUICKLY WITH DISTRACTION. PT WAS CHANGED AND REPOSITIONED. PT IS COMFORTABLE IN BED, BLANKETS IN PLACE. BED IN LOWEST POSITION, CALL LIGHT WITHIN REACH, AND BED ALARM IS ON. ROOM IS NEAR THE NURSES STATION FOR FREQUENT ROUNDING.
--- NOTE | 2020-11-27 02:00 | NUR ---
PT IS AWAKE AND LAYING IN BED WITH EYES OPEN. PT DOES NOT APPEAR TO BE IN ANY DISTRESS. DIAPER IS DRY AND IN PLACE. IV IS PATENT AND WRAPPED WITH DRESSING. FLUIDS ARE INFUSING. BED ALARM IS ON AND BLANKETS ARE PROVIDED FOR COMFORT. PT IS STABLE.
--- NOTE | 2020-11-27 03:41 | NUR ---
PT SLEEPING IN SEMI FOWLERS POSITION. BREATHING IS UNLABORED ON RA. CHEST RISE AND FALL IS SYMMETRICAL. CALL LIGHT IS WITHIN REACH. FALL PRECAUTIONS IN PLACE. FREQUENT ROUNDS BEING MADE.
[2020-11-27 04:00] VITALS: BP 156/74
[2020-11-27] MEDS: BLOOD GLUCOSE MONITORING 1 DEV DEV FS SCH ×4 (05:26→20:30)
--- NOTE | 2020-11-27 05:30 | NUR ---
PT IS ASLEEP. IV IS PATENT AND INTACT. NO SOB OR PAIN IS APPARENT AT THIS TIME. PT IS STABLE. BED IN LOWEST POSITION AND CALL LIGHT IN REACH. PT WAS GIVEN ANOTHER BLANKET.
[2020-11-27] MEDS: PANTOPRAZOLE 40 MG TABEC PO SCH (06:37)
[2020-11-27] MEDS: ALBUTEROL SULFATE/IPRATROPIU 3 ML SOL IH SCH ×3 (07:17→19:04)
--- NOTE | 2020-11-27 07:25 | NUR ---
RECEIVED REPORT FROM NEWS DIRECTOR NURSE. PATIENT RESTING IN BED, AWAKE AND ANSWERS TO NAME. BREATHING EVEN AND UNLABORED, NO SIGNS OF ACUTE DISTRESS NOTED ON RA. DIAPER FOR INCONTINENCE. L HAND 24G INFUSING NS @ 60 ML/HR. BED IN LOW POSITION AND LOCKED. CALL LIGHT WITHIN REACH, TELE MONITOR IN PLACE, SAFETY MEASURES IN PLACE.
--- NOTE | 2020-11-27 07:25 | NUR ---
ENDORSED PT TO DAY SHIFT NURSE FOR CONTINUITY OF CARE. PT IS STABLE AT THIS TIME. PLAN OF CARE DISCUSSED.
[2020-11-27 08:00] VITALS: BP 136/68
[2020-11-27] MEDS: metFORMIN 500 MG TAB PO SCH ×3 (08:00→16:56)
[2020-11-27] MEDS: NACL 0.9% 1,000 ML IV SCH (08:35)
[2020-11-27] MEDS: METOPROLOL SUCCINATE 50 MG TABER PO SCH (09:00)
[2020-11-27] MEDS: BRIMONIDINE TARTRATE 0.2% OP 5 ML BTL OP SCH ×2 (09:00→20:26)
[2020-11-27] MEDS: hydroCHLOROthiazide 25 MG TAB PO SCH (09:00)
[2020-11-27] MEDS: LOSARTAN 50 MG TAB PO SCH (09:00)
[2020-11-27] MEDS: TAMSULOSIN 0.4 MG CAP PO SCH (09:00)
[2020-11-27] MEDS: TIMOLOL OP 0.5% 5 ML BTL OP SCH ×2 (09:00→20:26)
[2020-11-27] MEDS: ATORVASTATIN 20 MG TAB PO SCH (09:00)
[2020-11-27] MEDS: CLOPIDOGREL 75 MG TAB PO SCH (09:00)
[2020-11-27] MEDS: amLODIPine 5 MG TAB PO SCH (09:00)
[2020-11-27 09:12] LABS: BASOPHILS # (AUTO) 0.1 K/uL (0.00-0.22); BASOPHILS % (AUTO) 1.2 % (0.0-2.0); EOSINOPHILS # (AUTO) 0.3 K/uL (0-0.4); EOSINOPHILS % (AUTO) 3.7 % (0.0-4.0); HEMATOCRIT 33.2 % (36-52); HEMOGLOBIN 10.9 g/dL (12.0-18.0); LYMPHOCYTES # (AUTO) 1.3 K/uL (2.0-11.5); LYMPHOCYTES % (AUTO) 18.3 % (20.5-51.1); MEAN CORPUSCULAR HEMOGLOBIN 29 pg (27-31); MEAN CORPUSCULAR HGB CONC 33 g/dL (33-37); MEAN CORPUSCULAR VOLUME 89.3 fL (80-94); MONOCYTES # (AUTO) 0.6 K/uL (0.8-1.0); MONOCYTES % (AUTO) 8.4 % (1.7-9.3); NEUTROPHILS # (AUTO) 4.7 K/uL (1.8-7.7); NEUTROPHILS % (AUTO) 68.4 % (42.2-75.2); PLATELET COUNT (AUTO) 251 K/uL (140-450); RED BLOOD CELL COUNT(AUTO) 3.71 MIL/uL (4.20-6.10); RED CELL DISTRIBUTION WIDTH 14.8 % (11.6-13.7); WHITE BLOOD COUNT (AUTO) 6.9 K/uL (4.8-10.8)
[2020-11-27 09:23] LABS: ANION GAP 13.6 (8-16); CARBON DIOXIDE 27.2 mmol/L (21-32); CHLORIDE 103 mmol/L (98-107); CREATININE 1.6 mg/dL (0.6-1.3); GLUCOSE 153 mg/dL (74-106); POTASSIUM 3.8 mmol/L (3.5-5.1); SODIUM SERUM 140 mmol/L (136-145); UREA NITROGEN, BLOOD 18 mg/dL (7-18)
[2020-11-27 09:26] LABS: MAGNESIUM 1.5 mg/dL (1.8-2.4); PHOSPHORUS 3.6 mg/dL (2.5-4.9)
--- NOTE | 2020-11-27 10:06 | NUR ---
ADMINISTERED SCHEDULED MEDS PER MD ORDER. MED EDUCATION PROVIDED, REINFORCEMENT NEEDED. MEDS TOLERATED WELL WITH SIPS OF WATER. TELE MONITOR IN PLACE, SAFETY MEASURES IN PLACE.
[2020-11-27] MEDS: INSULIN LISPRO SLIDING SCALE 100 UNITS/ML VIAL SUBQ PRN ×2 (11:28→20:34)
--- NOTE | 2020-11-27 11:30 | NUR ---
BLOOD GLUCOSE CHECKED, 235, 4 UNITS HUMALOG INSULIN ADMINISTERED.
[2020-11-27 12:00] VITALS: BP 128/76
[2020-11-27] MEDS ORDERED: MAG SULF 2000 MG/WATER PREMIX 50 ML IV SCH (15:00)
--- NOTE | 2020-11-27 15:39 | NUR ---
ONE TIME DOSE OF MAGNESIUM SULFATE ADMINISTERED PER MD ORDERS FOR MAGNESIUM OF 1.5. INFUSING STARTED WITH ALL NEW TUBING, INFUSING PER MED ORDERS. MED EDUCATION PROVIDED, REINFORCEMENT NEEDED.
[2020-11-27 16:00] VITALS: BP 133/66
--- NOTE | 2020-11-27 17:01 | NUR ---
ADMINISTERED SCHEDULED MEDS PER MD ORDER. BLOOD GLUCOSE CHECKED, 149, NO INSULIN COVERAGE NEEDED. MED EDUCATION PROVIDED, REINFORCEMENT NEEDED. CALL LIGHT WITHIN REACH. TELE MONITOR IN PLACE, SAFETY MEASURES IN PLACE.
--- NOTE | 2020-11-27 19:08 | NUR ---
PATIENT ENDORSED TO ENDBANDER NURSE FOR CONTINUITY OF CARE. PATIENT STABLE AT THIS TIME.
--- NOTE | 2020-11-27 19:08 | NUR ---
RECEIVED REPORT FROM AM SHIFT. PT SEEN AND ASSESSED. FOUND PT ON ROOM AIR WITH SPO2 OF 95%. PT IS IN NO APPARENT RESPIRATORY DISTRESS AT THIS TIME. AUSCULTATION REVEALS CLEAR/DIMINISHED BREATH SOUNDS ON UPPER LOBES AND DIMINISHED ON THE BASES. SCHEDULE HHN TX GIVEN ORDERED AND PT TOLERATED TX WELL WITH NO ADVERSE REACTION. WILL CONTINUE TO MONITOR PT.
--- NOTE | 2020-11-27 19:15 | NUR ---
RECIEVED BED SIDE REPORT FROM DAY SHIFT RN, PT LYING IN BED RESITNG, A&0X2/3, ABLE TP MAKE NEEDS KNOWNS AND FOLLOWS COMMANDS, SR ON MONITORI, AFEBRILE, PT ON RM AIR, PERIPHERAL PULSES PALPABLE, LUNG CLEAR AND UNLABORED, SKIN WARM AND DRY TO TOUCH, ABD SOFT AND NON TENDER TO TOUCH, PT WEARING A DIAPER AND INCONTINENT, LH 24 GAUGE INFUSING NS @ 60 MLS/HR, PT SHOWING NO SIGNS OF ACUTE DISTRESS, SAFETY MEASURES IN PLACE, CALL LIGHT WITHIN REACH, WILL CONTINUE WITH CURRENT POC
[2020-11-27 20:00] VITALS: BP 155/68
[2020-11-27] MEDS: OLANZapine 2.5 MG TAB PO SCH (20:26)
--- NOTE | 2020-11-27 21:30 | NUR ---
ADMINISTERED 2100H MEDICATIONS PER ORDERED, BLOOD GLUCOSE 172, ADMINISTERED 2 UNITS HUMALOG PER PROTOCOL
--- NOTE | 2020-11-27 23:10 | NUR ---
PT RESTING AND SHOWING NO SIGNS OF ACUTE DISTRESS
[2020-11-28] VITALS: BP 140/77
[2020-11-28] MEDS: NACL 0.9% 1,000 ML IV SCH (01:15)
--- NOTE | 2020-11-28 02:14 | NUR ---
PT ASLEEP AND SHOWING NO SIGNS OF ACUTE DISTRESS
[2020-11-28 04:00] VITALS: BP 149/68
[2020-11-28 05:37] LABS: BASOPHILS # (AUTO) 0.1 K/uL (0.00-0.22); BASOPHILS % (AUTO) 1.2 % (0.0-2.0); EOSINOPHILS # (AUTO) 0.4 K/uL (0-0.4); EOSINOPHILS % (AUTO) 6.1 % (0.0-4.0); HEMATOCRIT 31.5 % (36-52); HEMOGLOBIN 10.6 g/dL (12.0-18.0); LYMPHOCYTES # (AUTO) 1.4 K/uL (2.0-11.5); LYMPHOCYTES % (AUTO) 19.3 % (20.5-51.1); MEAN CORPUSCULAR HEMOGLOBIN 30 pg (27-31); MEAN CORPUSCULAR HGB CONC 34 g/dL (33-37); MEAN CORPUSCULAR VOLUME 89.7 fL (80-94); MONOCYTES # (AUTO) 0.6 K/uL (0.8-1.0); NEUTROPHILS # (AUTO) 4.6 K/uL (1.8-7.7); NEUTROPHILS % (AUTO) 64.4 % (42.2-75.2); PLATELET COUNT (AUTO) 247 K/uL (140-450); RED BLOOD CELL COUNT(AUTO) 3.51 MIL/uL (4.20-6.10); RED CELL DISTRIBUTION WIDTH 14.8 % (11.6-13.7); WHITE BLOOD COUNT (AUTO) 7.1 K/uL (4.8-10.8)
[2020-11-28 05:45] LABS: ANION GAP 13.9 (8-16); CARBON DIOXIDE 26.4 mmol/L (21-32); CHLORIDE 105 mmol/L (98-107); CREATININE 1.5 mg/dL (0.6-1.3); GLUCOSE 133 mg/dL (74-106); POTASSIUM 4.3 mmol/L (3.5-5.1); SODIUM SERUM 141 mmol/L (136-145); UREA NITROGEN, BLOOD 17 mg/dL (7-18)
[2020-11-28] MEDS: BLOOD GLUCOSE MONITORING 1 DEV DEV FS SCH ×2 (06:32→11:30)
[2020-11-28] MEDS: PANTOPRAZOLE 40 MG TABEC PO SCH (06:32)
--- NOTE | 2020-11-28 06:34 | NUR ---
ADMINISTERED 0730H MEDICATIONS PER ORDERED, BLOOD GLUCOSE [id number]
--- NOTE | 2020-11-28 07:25 | NUR ---
ENDORSED TO DAY SHIFT RN FOR CONTINUITY OF CARE
[2020-11-28 08:00] VITALS: BP 163/64
[2020-11-28] MEDS: hydroCHLOROthiazide 25 MG TAB PO SCH (09:36)
[2020-11-28] MEDS: LOSARTAN 50 MG TAB PO SCH (09:37)
[2020-11-28] MEDS: metFORMIN 500 MG TAB PO SCH ×2 (09:38→11:20)
[2020-11-28] MEDS: CLOPIDOGREL 75 MG TAB PO SCH (09:38)
[2020-11-28] MEDS: amLODIPine 5 MG TAB PO SCH (09:39)
[2020-11-28] MEDS: ATORVASTATIN 20 MG TAB PO SCH (09:40)
[2020-11-28] MEDS: METOPROLOL SUCCINATE 50 MG TABER PO SCH (09:40)
[2020-11-28] MEDS: TAMSULOSIN 0.4 MG CAP PO SCH (09:40)
[2020-11-28] MEDS: TIMOLOL OP 0.5% 5 ML BTL OP SCH (09:41)
[2020-11-28] MEDS: BRIMONIDINE TARTRATE 0.2% OP 5 ML BTL OP SCH (09:41)
--- NOTE | 2020-11-28 09:52 | NUR ---
ADMINISTERED PRESCRIBED MEDS PER MD ORDER. PATIENT TOLERATED WELL. 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 SAFETY MEASURES IN PLACE. WILL CONTINUE TO MONITOR.
[2020-11-28] MEDS ORDERED: CEPH250C16 PO (10:47)
[2020-11-28] MEDS ORDERED: CLOP75TA55 PO (10:49)
--- NOTE | 2020-11-28 11:51 | NUR ---
ADMINISTERED PRESCRIBED MEDS PER MD ORDER. PATIENT WATCHING TV IN BED, SHOWS NO SIGNS OF DISTRESS. BLOOD GLUCOSE 230 WILL ADMINISTER PRN INSULIN. SAFETY MEASURES IN PLACE. WILL CONTINUE TO MONITOR.
[2020-11-28] MEDS: INSULIN LISPRO SLIDING SCALE 100 UNITS/ML VIAL SUBQ PRN (11:57)
[2020-11-28 12:00] VITALS: BP 141/67
[2020-11-28] MEDS: ALBUTEROL SULFATE/IPRATROPIU 3 ML SOL IH SCH (13:44)
--- NOTE | 2020-11-28 14:23 | NUR ---
11/28/20 RD INITIAL ASSESSMENT COMPLETED PLEASE REFER TO NUTRITION ASSESSMENT UNDER CARE ACTIVITY FOR ESTIMATED NUTRITIONAL NEEDS. 1. CONTINUE MECHANICAL SOFT DIET TOLERATED 2. RD TO FOLLOW-UP 3-5 DAYS, MODERATE RISK CHRIS SANCHEZ RD
--- NOTE | 2020-11-28 15:12 | NUR ---
PATIENT IS SCHEDULED TO BE DISCHARGED AT 1530. REPORT GIVEN TO ANSHUL HITCHCOCK AT [facility] . PATIENT GOING TO #[id number] UND[address] GARDINER. 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
--- NOTE | 2020-11-28 18:23 | NUR ---
PATIENT IS DISCHARGED. PICKED UP BY TRANSPORT. PATIENT BELONGINGS GATHERED AND PLACED IN PATIENT BAG. REMOVED IV LINE, TELE MONITOR AND ID BANDS. PATIENT IS GOING TO [facility]. PATIENT IS STABLE.
== END 2020-11-28 17:31 | DRG 177 ==
LOC: MED 11:03 → MTU 12:26 → UNDODISIN 11-26 18:45 → MTU 11-26 19:10
PROVIDERS: ADMIT Family Medicine; ATTEND Family Medicine
DX: J69.0 Pneumonitis due to inhalation of food and vomit (principal); G93.41 Metabolic encephalopathy; N17.0 Acute kidney failure with tubular necrosis; I62.00 Nontraumatic subdural hemorrhage, unspecified; J90 Pleural effusion, not elsewhere classified; K21.9 Gastro-esophageal reflux disease without esophagitis; E78.00 Pure hypercholesterolemia, unspecified; F03.90 Unspecified dementia, unspecified severity, without behavioral disturbance, psychotic disturbance, mood disturbance, and anxiety; I25.10 Atherosclerotic heart disease of native coronary artery without angina pectoris; E78.5 Hyperlipidemia, unspecified; E11.9 Type 2 diabetes mellitus without complications; D64.9 Anemia, unspecified; E83.42 Hypomagnesemia; E87.6 Hypokalemia; I11.9 Hypertensive heart disease without heart failure; N40.0 Benign prostatic hyperplasia without lower urinary tract symptoms; H40.9 Unspecified glaucoma; Z20.822 Contact with and (suspected) exposure to COVID-19; Z86.73 Personal history of transient ischemic attack (TIA), and cerebral infarction without residual deficits
CPT/HCPCS: 36415; 70450; 71045; 80048; 80053; 80305; 81003; 82150; 82948; 83036; 83690; 83735; 83880; 84100; 84436; 84439; 84443; 84479; 84484; 85025; 85610; 85730; 87040; 87070; 87081; 87205; 92610; 92700; 93005; 94640; 96374; 97110; 97112; 97116; 97530; 99285; J0696; J1644; J1815; J1940; J3475; J7030; J7060; U0003